=== PATIENT | female | born 1985 | race African-American/Black ===

== ENCOUNTER 2023-06-03 10:52 | Emergency (ER) | payer MEDICAID ==
[~2023-06-03] VITALS: Ht 175.3 cm; Wt 68.2 kg
[2023-06-03 10:54] VITALS: TEMP 98.9
[2023-06-03] MEDS ORDERED: FLUORESCEIN SODIUM 1 MG STRIP OU ONE (12:30)
[2023-06-03 13:43] VITALS: BP 140/87; PULSE 95; RESP 18
[2023-06-03] MEDS ORDERED: MOXI3DRO25 OS (13:55)
== END 2023-06-03 14:00 | disposition left against medical advice (07) ==
LOC: EMS 10:55 → EDSEX 10:55 → EMS 14:00
DX: H10.9 Unspecified conjunctivitis (principal)
CPT/HCPCS: 99282; Z7502